=== PATIENT | female | born 1955 | race Caucasian/White ===

== ENCOUNTER → 2016-12-11 | Outpatient (CLI) | payer OTHER ==
[~2016-12-11] MED LIST: BUPROPION HCL150 M1 PO; DIOVAN160 MG PO; HCTZ 25MG25 MG PO; METFORMIN HCL500 M1 PO; NOLVADEX20 MG PO; PRILOSEC20 M1 PO; PROZAC 20MG20 MG PO
== END ==
LOC: MC.RAD 07:40
DX: Z12.31 Encounter for screening mammogram for malignant neoplasm of breast (principal); Z98.890 Other specified postprocedural states

== ENCOUNTER 2017-03-30 08:18 | Day surgery (SDC) | payer OTHER ==
[~2017-03-30] VITALS: Ht 160 cm; Wt 75.9 kg
[~2017-03-30 08:18] MED LIST changes: -BUPROPION HCL150 M1 PO; +HCTZ 25MG TAB25 MG PO; -HCTZ 25MG25 MG PO; +ZYBAN150 M1 PO
[2017-03-30] MEDS ORDERED: SINGULAIR 110 MG/TAB PO (09:19)
[2017-03-30] MEDS ORDERED: DESYREL 100MG100 MG PO (09:19)
[2017-03-30] MEDS ORDERED: NORVASC 5MG5 MG/TAB PO (09:20)
[2017-03-30] MEDS ORDERED: CLARITIN 1010 MG/TAB PO (09:20)
[2017-03-30] MEDS ORDERED: OMEGA-3 1000 MG1 CAP PO (09:21)
[2017-03-30] MEDS ORDERED: MASON NATURAL500 MG PO (09:21)
[2017-03-30] MEDS ORDERED: FOSAMAX 35MG35 MG PO (09:21)
[2017-03-30] MEDS ORDERED: CALCIUM CARBON650 M2 PO (09:22)
[2017-03-30 09:30] VITALS: BP 109/72; PULSE 80; TEMP 98.3
[2017-03-30 11:33] VITALS: BP 94/67; PULSE 85; TEMP 97.9
[2017-03-30 11:45] VITALS: BP 106/63; PULSE 82
[2017-03-30 12:00] VITALS: BP 113/68; PULSE 70
[2017-03-30 12:17] VITALS: BP 108/57; PULSE 76
== END 2017-03-30 12:26 | disposition home or self-care (01) ==
LOC: SDCO 08:18
DX: Z12.11 Encounter for screening for malignant neoplasm of colon (principal); D12.2 Benign neoplasm of ascending colon; K64.4 Residual hemorrhoidal skin tags; I10 Essential (primary) hypertension; F32.9 Major depressive disorder, single episode, unspecified; Z85.3 Personal history of malignant neoplasm of breast; Z90.710 Acquired absence of both cervix and uterus; Z90.721 Acquired absence of ovaries, unilateral
CPT/HCPCS: OP; J2250; J2405; J3010; J7030

== ENCOUNTER → 2017-12-14 | Outpatient (CLI) | payer OTHER ==
[~2017-12-14] MED LIST changes: +CALCIUM CARBON650 M2 PO; +CLARITIN 1010 MG/TAB PO; +DESYREL 100MG100 MG PO; +FOSAMAX 35MG35 MG PO; +MASON NATURAL500 MG PO; +NORVASC 5MG5 MG/TAB PO; +OMEGA-3 1000 MG1 CAP PO; +SINGULAIR 110 MG/TAB PO
== END ==
LOC: MC.RAD 14:39
DX: Z12.31 Encounter for screening mammogram for malignant neoplasm of breast (principal)

== ENCOUNTER → 2019-01-05 | Outpatient (CLI) | payer MEDICARE, OTHER | LOC: MC.RAD 12-16 11:00 | DX: Z12.31 Encounter for screening mammogram for malignant neoplasm of breast (principal) ==

== ENCOUNTER 2019-08-17 16:05 | Emergency (ER) | payer MEDICARE, OTHER ==
[~2019-08-17] VITALS: Ht 160 cm; Wt 85.9 kg
[2019-08-17 17:16] LABS: ALBUMIN 4.4 gm/dL (3.5-5.0); BILIRUBIN,TOTAL 0.4 mg/dL (0.0-1.0); C-REACTIVE PROTEIN 0.9 mg/dL (0.0-0.9); CALCIUM 9.4 mg/dL (8.4-10.2); CREATININE, serum 0.71 (0.52-1.25); POTASSIUM 3.3 mmol/L (3.4-5.0); TOTAL PROTEIN 8.1 gm/dL (6.4-8.2)
[2019-08-17 17:26] LABS: BASO # 0.1 (0.0-0.2); EOS # 0.3 (0.0-0.7); EOS % 3.1 % (0-4.0); GRAN # 6.4 (1.4-6.5); GRAN % 68.7 % (42.2-75.2); HEMATOCRIT 41.9 % (37.0-47.0); HEMOGLOBIN 13.7 g/dl (12.5-16.0); LYMPH # 1.5 (1.2-3.4); LYMPH % 15.5 % (20.0-51.0); MEAN CELL VOLUME 88 fl (80.0-100.0); MEAN CORPUSCULAR HEMOGLOBIN 29 pg (27.0-31.0); MEAN CORPUSCULAR HGB CONC 33 g/dl (33.0-37.0); MEAN PLATELET VOLUME 9.4 fl (7.4-10.4); MONO # 1.1 (0.1-0.6); MONO % 11.4 % (1.7-9.3); PLATELET COUNT 353 K/mm3 (130-400); RED BLOOD COUNT 4.77 M/mm3 (4.10-5.30); REDCELL DISTRIBUTION WIDTH-CV 12.7 % (11.5-14.5)
[2019-08-17 17:40] LABS: TROPONIN-I < 0.012 ng/mL (0.000-0.035)
[2019-08-17 18:33] LABS: COLLECTION METHOD CLEAN CATCH
[2019-08-17 18:49] LABS: SQUAMOUS EPITHELIAL None Seen /hpf; URINE BACTERIA None Seen /hpf; URINE RBC 0-2 /hpf
[2019-08-17 19:00] LABS: MUCOUS Present /lpf; PH 7 (5-8); URINE APPEARANCE Hazy; URINE BILIRUBIN Negative (NEGATIVE); URINE BLOOD Negative (NEGATIVE); URINE COLOR Yellow; URINE GLUCOSE Negative (NEGATIVE); URINE KETONE Negative (NEGATIVE); URINE LEUKOCYTE ESTERASE Negative (NEGATIVE); URINE NITRATE Negative (NEGATIVE); URINE PROTEIN(semi-quant) Negative (NEGATIVE); URINE UROBILINOGEN Negative (NEGATIVE)
[2019-08-17 19:51] VITALS: BP 115/67; PULSE 105; TEMP 98.3
== END 2019-08-17 19:50 | disposition home or self-care (01) ==
LOC: COL.ER 16:05
PROVIDERS: Nurse Practitioner Primary Care
DX: R50.9 Fever, unspecified (principal); R05 Cough; I10 Essential (primary) hypertension; Z85.3 Personal history of malignant neoplasm of breast; Z20.828 Contact with and (suspected) exposure to other viral communicable diseases; Z90.710 Acquired absence of both cervix and uterus; Z90.89 Acquired absence of other organs; Z98.51 Tubal ligation status
CPT/HCPCS: J7040

== ENCOUNTER → 2020-02-09 | Outpatient (CLI) | payer MEDICARE, OTHER | LOC: MC.RAD 14:15 | DX: Z12.31 Encounter for screening mammogram for malignant neoplasm of breast (principal) ==

== ENCOUNTER 2020-07-02 08:08 | Day surgery (SDC) | payer MEDICARE, OTHER ==
[~2020-07-02] VITALS: Ht 160 cm; Wt 79.8 kg
[~2020-07-02 08:08] MED LIST changes: -DESYREL 100MG100 MG PO; +DESYREL 50MG50 MG PO
[2020-07-02] MEDS ORDERED: PROZAC 20MG20 MG PO (08:22)
[2020-07-02] MEDS ORDERED: PROTONIX 40MG T40 MG PO (08:23)
[2020-07-02] MEDS ORDERED: SYNTHROID0.05 MG/TA PO (08:24)
[2020-07-02 08:30] VITALS: BP 107/74; PULSE 79; TEMP 98.3
[2020-07-02 10:00] VITALS: BP 124/73; PULSE 84; TEMP 98.1
--- NOTE | 2020-07-02 10:00 | NUR ---
Pt to [facility] via cart from ENDO. Pt awake and alert. Denies pain or nausea. Soda and muffin given per pt request. Will continue to monitor. Call light within reach.
[2020-07-02 10:15] VITALS: BP 122/74; PULSE 77
--- NOTE | 2020-07-02 10:15 | NUR ---
Pt tolerating PO food/fluids without difficulties. Denies needs. Call light within reach.
--- NOTE | 2020-07-02 10:30 | NUR ---
Discharge instructions reviewed. Pt voices understanding. IV site discontinued with all parts intact. Pt up to dress. Call light within reach.
--- NOTE | 2020-07-02 10:45 | NUR ---
Pt escorted to private car via wheel chair. Pt accompanied home by her .
== END 2020-07-02 10:45 | disposition home or self-care (01) ==
LOC: SDCO 08:08
DX: K31.7 Polyp of stomach and duodenum (principal); K44.9 Diaphragmatic hernia without obstruction or gangrene; K22.2 Esophageal obstruction; I10 Essential (primary) hypertension; R13.10 Dysphagia, unspecified; M85.80 Other specified disorders of bone density and structure, unspecified site; F32.9 Major depressive disorder, single episode, unspecified; Z20.822 Contact with and (suspected) exposure to COVID-19; Z79.83 Long term (current) use of bisphosphonates; Z85.3 Personal history of malignant neoplasm of breast; Z79.899 Other long term (current) drug therapy
CPT/HCPCS: C1726; J2405; J2704; J7120

== ENCOUNTER 2020-09-11 05:58 | Emergency (ER) | payer MEDICARE, OTHER ==
[~2020-09-11] VITALS: Ht 160 cm; Wt 79.5 kg
[~2020-09-11 05:58] MED LIST changes: +PROTONIX 40MG T40 MG PO; +SYNTHROID0.05 MG/TA PO
[2020-09-11 06:06] VITALS: TEMP 98.2
[2020-09-11 06:33] LABS: BASO % 0.4 % (0.0-2.0); EOS # 0.1 (0.0-0.7); EOS % 1.5 % (0-4.0); GRAN # 6.9 (1.4-6.5); GRAN % 73.3 % (42.2-75.2); HEMATOCRIT 45.8 % (37.0-47.0); HEMOGLOBIN 15.3 g/dl (12.5-16.0); LYMPH # 1.6 (1.2-3.4); LYMPH % 16.6 % (20.0-51.0); MEAN CELL VOLUME 91 fl (80.0-100.0); MEAN CORPUSCULAR HEMOGLOBIN 30 pg (27.0-31.0); MEAN CORPUSCULAR HGB CONC 33 g/dl (33.0-37.0); MONO # 0.7 (0.1-0.6); MONO % 7.8 % (1.7-9.3); PLATELET COUNT 366 K/mm3 (130-400); RED BLOOD COUNT 5.06 M/mm3 (4.10-5.30); REDCELL DISTRIBUTION WIDTH-CV 12.8 % (11.5-14.5)
[2020-09-11 06:35] LABS: ALBUMIN 4.7 gm/dL (3.5-5.0); BILIRUBIN,TOTAL 0.5 mg/dL (0.0-1.0); CALCIUM 9.7 mg/dL (8.4-10.2); CREATININE, serum 0.78 (0.52-1.25); POTASSIUM 3.2 mmol/L (3.4-5.0); TOTAL PROTEIN 8.7 gm/dL (6.4-8.2)
[2020-09-11] MEDS ORDERED: ZOFRAN ODT4 MG PO (08:15)
[2020-09-11 09:33] VITALS: BP 121/95; PULSE 86
== END 2020-09-11 09:37 | disposition home or self-care (01) ==
LOC: COL.ER 05:58
PROVIDERS: Emergency Medicine
DX: R11.2 Nausea with vomiting, unspecified (principal); R19.7 Diarrhea, unspecified; E87.6 Hypokalemia; R94.5 Abnormal results of liver function studies; I10 Essential (primary) hypertension; E03.9 Hypothyroidism, unspecified; F32.9 Major depressive disorder, single episode, unspecified; R50.9 Fever, unspecified; Z90.49 Acquired absence of other specified parts of digestive tract; Z90.710 Acquired absence of both cervix and uterus; Z79.899 Other long term (current) drug therapy; Z79.890 Hormone replacement therapy
CPT/HCPCS: J2405; J3480; J7040; J7120; Q9967

== ENCOUNTER 2021-01-15 15:59 | Emergency (ER) | payer MEDICARE, OTHER ==
[~2021-01-15] VITALS: Ht 157.5 cm; Wt 78.6 kg
[~2021-01-15 15:59] MED LIST changes: +ZOFRAN ODT4 MG PO
[2021-01-15 18:14] LABS: HEMATOCRIT 44.1 % (37.0-47.0); HEMOGLOBIN 14.8 g/dl (12.5-16.0); MEAN CELL VOLUME 87 fl (80.0-100.0); MEAN CORPUSCULAR HEMOGLOBIN 29 pg (27.0-31.0); MEAN CORPUSCULAR HGB CONC 34 g/dl (33.0-37.0); MEAN PLATELET VOLUME 9.4 fl (7.4-10.4); PLATELET COUNT 154 K/mm3 (130-400); RED BLOOD COUNT 5.08 M/mm3 (4.10-5.30); REDCELL DISTRIBUTION WIDTH-CV 13.6 % (11.5-14.5)
[2021-01-15 18:32] LABS: ALANINE AMINOTRANSFERASE 91 U/L (0-55); ALBUMIN 3.4 gm/dL (3.4-4.8); ALKALINE PHOSPHATASE 110 U/L (0-750); ANION GAP 11 mmol/L (7-16); AST,SGOT 79 U/L (5-34); BILIRUBIN,TOTAL 0.5 mg/dL (0.2-1.2); BLOOD UREA NITROGEN 10 mg/dL (10-20); CARBON DIOXIDE 27 mmol/L (23-31); CHLORIDE 96 mmol/L (98-107); CREATININE, serum 0.76 mg/dL (0.57-1.11); GLUCOSE 191 mg/dL (70-99); SODIUM 134 mmol/L (136-145); TOTAL PROTEIN 7.7 gm/dL (6.2-8.1)
[2021-01-15 18:37] LABS: POTASSIUM 2.7 mmol/L (3.5-4.5)
[2021-01-15 18:49] LABS: TROPONIN-I < 0.010 ng/mL (0.00-0.033)
[2021-01-15 18:57] LABS: COLLECTION METHOD CLEAN CATCH
[2021-01-15 19:10] LABS: PH 7 (5-8); SQUAMOUS EPITHELIAL None Seen /hpf; URINE APPEARANCE Hazy; URINE BACTERIA None Seen /hpf; URINE BILIRUBIN Negative (NEGATIVE); URINE BLOOD Negative (NEGATIVE); URINE GLUCOSE Negative (NEGATIVE); URINE KETONE Negative (NEGATIVE); URINE LEUKOCYTE ESTERASE Negative (NEGATIVE); URINE NITRATE Negative (NEGATIVE); URINE PROTEIN(semi-quant) Negative (NEGATIVE); URINE RBC None Seen /hpf; URINE UROBILINOGEN Negative (NEGATIVE)
[2021-01-15 19:11] LABS: URINE COLOR Yellow
[2021-01-15 19:18] LABS: BAND 6 % (0-10); LYMPHOCYTE 39 % (20.0-51.0); NEUTROPHILS 52 % (42.0-75.2)
[2021-01-15 19:19] LABS: PLATELET ESTIMATE NORMAL (NORMAL)
[2021-01-16 02:45] VITALS: BP 185/76; PULSE 78; TEMP 98.2
== END 2021-01-16 02:45 | disposition home or self-care (01) ==
LOC: COL.ER 15:59
PROVIDERS: Physician Assistant
DX: E87.6 Hypokalemia (principal); R53.83 Other fatigue; R94.5 Abnormal results of liver function studies; F32.A Depression, unspecified; I10 Essential (primary) hypertension; K21.9 Gastro-esophageal reflux disease without esophagitis; G47.00 Insomnia, unspecified; Z20.822 Contact with and (suspected) exposure to COVID-19; Z90.710 Acquired absence of both cervix and uterus; Z90.49 Acquired absence of other specified parts of digestive tract; Z79.899 Other long term (current) drug therapy
CPT/HCPCS: J3475; J3480

== ENCOUNTER → 2021-06-12 | Outpatient (CLI) | payer MEDICARE, OTHER | LOC: MC.RAD 13:11 | DX: Z12.31 Encounter for screening mammogram for malignant neoplasm of breast (principal); Z85.3 Personal history of malignant neoplasm of breast; Z98.890 Other specified postprocedural states ==

== ENCOUNTER → 2021-06-16 | Outpatient (CLI) | payer MEDICARE, OTHER | LOC: COL.RAD 11:07 | DX: N28.1 Cyst of kidney, acquired (principal); N20.0 Calculus of kidney ==

== ENCOUNTER → 2021-07-22 | Outpatient (CLI) | payer MEDICARE, OTHER | LOC: COL.RAD 09:46 | DX: G45.9 Transient cerebral ischemic attack, unspecified (principal) | CPT/HCPCS: Q9967 ==

== ENCOUNTER → 2022-06-24 | Outpatient (CLI) | payer MEDICARE, OTHER ==
[~2022-06-24] MED LIST changes: +[UNRECOGNIZED DRUG - OTHER] PO
== END ==
LOC: MC.RAD 13:15
DX: Z12.31 Encounter for screening mammogram for malignant neoplasm of breast (principal)

== ENCOUNTER → 2023-06-28 | Outpatient (CLI) | payer MEDICARE, OTHER | LOC: MC.RAD 11:22 | DX: Z12.31 Encounter for screening mammogram for malignant neoplasm of breast (principal) ==